=== PATIENT | male | born 1955 | race Caucasian/White ===

== ENCOUNTER 2016-10-25 07:34 | Observation (INO) | payer MEDICARE ==
[2016-10-19 09:17] LABS: BASOPHILS 0.3 %; BASOPHILS ABSOLUTE 0.02 10/3/uL (0.0-0.16); EOSINOPHILS 2.8 %; EOSINOPHILS ABSOLUTE 0.21 10/3/uL (0.0-0.53); HEMATOCRIT 42.4 % (40.0-51.0); HEMOGLOBIN 14.1 g/dL (13.6-17.8); IMMATURE GRANULOCYTES 0.1 %; IMMATURE GRANULOCYTES ABSOLUTE 0.01 10/3/uL (0.0-0.11); LYMPHOCYTES 16.6 %; LYMPHOCYTES ABSOLUTE 1.25 10/3/uL (0.67-4.30); MANUAL DIFF NO %; MEAN CORPUS HGB CONC 33.3 g/dL (32.0-36.0); MEAN CORPUSCULAR HEMOGLOB 32.6 pg (26.0-34.0); MEAN CORPUSCULAR VOLUME 98.1 fL (80-100); MEAN PLATELET VOLUME 9.8 fL (9.2-13.0); MONOCYTES 6.3 %; MONOCYTES ABSOLUTE 0.47 10/3/uL (0.21-1.20); NEUTROPHILS 73.9 %; NEUTROPHILS ABSOLUTE 5.55 10/3/uL (2.02-8.40); PLATELET COUNT 218 10/3/uL (150-400); RBC DISTRIBUTION WIDTH 12.8 % (12.0-16.0); RED CELL COUNT 4.32 10/6/uL (4.7-6.1); WHITE BLOOD CELLS 7.5 10/3/uL (4.5-10.5)
[2016-10-19 09:29] LABS: BUN (BLOOD UREA NITROGEN) 19 MG/DL (6-23); CALCIUM, SERUM 9.6 MG/DL (8.5-10.4); CHLORIDE, SERUM 105 MMOL/L (96-112); CO2 (CARBON DIOXIDE) 30 MMOL/L (24-34); CREATININE 0.93 MG/DL (0.70-1.30); GFR AFRICAN AMERICAN 102 ML/MIN (>=60); GFR NON AFRICAN AMERICAN 88 ML/MIN (>=60); GLUCOSE, SERUM 117 MG/DL (60-99); POTASSIUM, SERUM 4.6 MMOL/L (3.5-5.3); SODIUM, SERUM 143 MMOL/L (135-148)
[2016-10-19 09:33] LABS: PARTIAL THROMBO TIME 27.6 SEC (22.5-37.2); PROTIME (NOT ORD) 13.4 SEC (12.0-14.5)
[2016-10-19 11:09] LABS: ASCORBIC ACID (UR NOT ORDER) NEG (NEG); BILIRUBIN, URINE NEGATIVE (NEG); KETONE, URINE TRACE MG/DL (NEG); LEUKOCYTE ESTERASE(NOT OR NEG (NEG); WBC (NOT ORDERED) (RFLEX) 1 (0-5)
--- NOTE | ~2016-10-25 | OP ---
Record Of Operation [facility] [address] [place]. [address] NAME: CJ FERNANDES : 55 STATUS : ADM Nelia PAT#: [id number] AGE: 61 ADM/REG DATE : 10/25/16 MR#: [id number] REPORT SERV DATE: 10/25/16 DICTATED BY: BOBBY DESHPANDE DATE: 10/25/16 REPORT STATUS : Draft TRANSCRIBED BY: MODNay DATE: 10/25/16 DATE OF PROCEDURE: 10/25/2016 PREOPERATIVE DIAGNOSIS: Stress urinary incontinence, status post laparoscopic robot-assisted radical prostatectomy. POSTOPERATIVE DIAGNOSIS: Stress urinary incontinence, status post laparoscopic robot- assisted radical prostatectomy. PROCEDURE: Flexible cystoscopy, trans obturator sling (male sling). BUTTERMILK DRIER OPERATOR: Grabiel Edward. ANESTHESIA: General endotracheal. ESTIMATED BLOOD LOSS: Estimated 25 mL. FLUID REPLACEMENT: 1 L crystalloid. DRAINS: 14-Sudanese Deshpande catheter per urethra. INDICATIONS: 61-year-old male, with stress incontinence three years after surgery and radiation for prostate cancer. TECHNIQUE: The patient was identified and brought to the operating room. Administered general anesthetic agent by the Anesthesia Service and intubated. He was positioned in dorsal lithotomy position. The perineum and groin were shaved, and the entire lower abdomen, penis, groin, scrotum, and perineum were prepped for 10 minutes and draped. A 16- Sudanese Deshpande catheter was passed into the bladder and left for drainage. An 8 cm skin incision in the perineum along the median raphe was made after infiltration of 0.5% Marcaine. It was carried down through dartos layer and subcutaneous tissue. Bulbocavernosus muscle was crudely identified. There are poor planes because of the patient's previous radiation. Nevertheless, I identified the bulbospongiosus and dissected off the bulbocavernosus muscles. The central tendon of the perineum was identified and incised sharply. The urethra was mobilized. I performed flexible cystoscopy. There was no bladder neck obstruction. I then used the [employer] male sling kit, passed some transobturator into the perineal wound. I grasped the tips of the sling and pulled back out through the obturator fossae. I tightened the sling up. I tacked it into position with 3-0 Vicryl. I copiously irrigated the wound. I then repeated the flexible cystoscopy. Nice coaptation was seen. No erosion or perforation of the urinary tract is seen. The cystoscope was removed. A 16-Sudanese Deshpande catheter was passed back into the bladder. I trimmed off the excess mesh. I closed bulbocavernosus muscle with a [id number] 3-0 Vicryl suture. I closed dartos layer with running 3-0 Vicryl. The subcutaneous tissue was reapproximated and then the skin was closed with 4-0 Monocryl. Dressings were applied. The catheter was secured. The patient awakened, taken to the recovery unit in a stable, and satisfactory condition. Record Of Operation [address] [place]. [address] NAME: CJ FERNANDES : 55 STATUS : ADM Nelia PAT#: [id number] AGE: 61 ADM/REG DATE : 10/25/16 MR#: [id number] REPORT SERV DATE: 10/25/16 DICTATED BY: BOBBY DESHPANDE DATE: 10/25/16 REPORT STATUS : Draft TRANSCRIBED BY: ALBERTO DATE: 10/25/16 PF/ALBERTO Bobby Deshpande M.D. / [id number] CC: Felicia Isabel M.D.
[~2016-10-25 07:34] MED LIST: FORTAMET1000 MG PO; GLUCOPHAGE1000 MG PO; GLUCOTRO10 PO; LORTAB 5 PO; NEUR400 PO; OX10; PAXIL40 MG PO; SEROQUEL1C PO; SEROQUEL400 MG PO; TRAZ100 PO; VICODINTAB PO; WELLXL150 PO; WELLXL300 PO; ZESTRIL10 MG PO
[2016-10-26] MEDS ORDERED: NORCO1 TA1 PO (09:29)
[2016-10-26] MEDS ORDERED: BACTRIM DS1 TAB PO (09:29)
== END 2016-10-26 15:05 | disposition home or self-care (01) ==
LOC: SDC 07:34 → 4SO 13:36
PROVIDERS: Urology
PROC: 0TSD0ZZ Reposition Urethra, Open Approach (ICD-10-PCS; principal; 2016-10-25 09:00)
DX: N39.3 Stress incontinence (female) (male) (principal); I10 Essential (primary) hypertension; E11.9 Type 2 diabetes mellitus without complications; F31.9 Bipolar disorder, unspecified; Z85.46 Personal history of malignant neoplasm of prostate; Z88.0 Allergy status to penicillin; Z98.890 Other specified postprocedural states
CPT/HCPCS: 80048; 81001; 82962; 85025; 85610; 85730; 93005; 96374; 96375; A9270-GY; C1781; G0378; J1580; J2250; J2405; J2710; J3010; J3370